=== PATIENT | male | born 1950 | race Caucasian/White ===

== ENCOUNTER → 2021-09-30 | Outpatient (CLI) | payer MEDICARE | END | disposition home or self-care (01) | LOC: LABPAT 14:59 | PROVIDERS: ATTEND Orthopaedic Surgery | DX: Z01.812 Encounter for preprocedural laboratory examination (principal); Z22.322 Carrier or suspected carrier of Methicillin resistant Staphylococcus aureus; M17.11 Unilateral primary osteoarthritis, right knee | CPT/HCPCS: 87070 ==

== ENCOUNTER 2021-10-20 08:16 | Day surgery (SDC) | payer MEDICARE ==
[2021-10-16 14:12] VITALS: BMI 25.0
--- NOTE | 2021-10-19 14:15 | HP ---
HISTORY AND PHYSICAL DATE OF SURGERY: 10/20/2021 Silverio Dye is a 71-year-old patient seen with symptomatic right knee osteoarthritis. We discussed options for treatment. He elected to proceed with right total knee arthroplasty. Consent was obtained. PAST MEDICAL HISTORY: Hypothyroidism, hypertension, hyperlipidemia. PAST SURGICAL HISTORY: Knee arthroscopy. DAILY MEDICATIONS: Levothyroxine, losartan, simvastatin, turmeric, aspirin. ALLERGIES: BACTRIM. SOCIAL HISTORY: He denies current tobacco use. PHYSICAL EVALUATION OF THE RIGHT KNEE: Range of motion is negative 2/3 to 85. Tenderness, medial joint line. Crepitus, medial and patellofemoral compartments with range of motion. Pain with patellofemoral compression. Ligaments stable. Hip rotation without pain. Distal neurovascular exam intact. Right knee radiographs revealed severe osteoarthritic changes. IMPRESSION: 1. Right knee osteoarthritis. 2. Hyperlipidemia. 3. Hypertension. PLAN: Right total knee arthroplasty. MMODL / IJN: [id number] /
[~2021-10-20 08:16] MED LIST: ACETAMINOPHEN TAB 500 MG TAB PO PRN; DEXAMETHASONE SOD PHOSPHATE 4 MG/ML 1 ML VIAL IV ONE; HYDROmorphone 0.5 MG/0.5 ML SYRINGE IVP PRN; LACTATED RINGERS 1,000 ML IV SCH; LIDOCAINE 1% (10MG/ML) FOR IV START INTRADERMA PRN; MELOXICAM 7.5 MG TAB PO PRN; MIDAZOLAM 2 MG/2 ML VIAL IV PRN; ONDANSETRON 4 MG/2 ML VIAL IVP ONE; TRANEXAMIC ACID 1,000 MG in SODIUM CHLORIDE 0.9% 100 ML IVPB PRN
[2021-10-20 08:45] VITALS: RESP 16
[2021-10-20] MEDS ORDERED: MIDAZOLAM 2 MG/2 ML VIAL IVP ONE ×2 (09:39→09:59)
[2021-10-20] MEDS ORDERED: NEOSTIGMINE 1 MG/ML 10 ML VIAL ONE (09:55)
[2021-10-20] MEDS ORDERED: DEXAMETHASONE SOD PHOSPHATE 4 MG/ML 1 ML VIAL ONE (09:55)
[2021-10-20] MEDS ORDERED: LIDOCAINE 1% INJ 10MG/ML (20 ML MDV) ONE (09:55)
[2021-10-20] MEDS ORDERED: GLYCOPYRROLATE 0.2 MG/ML 2 ML VIAL ONE (09:55)
[2021-10-20] MEDS ORDERED: MIDAZOLAM 2 MG/2 ML VIAL ONE (09:55)
[2021-10-20] MEDS ORDERED: ROCURONIUM 10 MG/ML (5 ML VIAL) IV ONE (09:55)
[2021-10-20] MEDS ORDERED: ePHEDrine 50 MG/ML 1 ML VIAL ONE (09:55)
[2021-10-20] MEDS ORDERED: PROPOFOL 10 MG/ML 20 ML VIAL IV ONE (09:55)
[2021-10-20] MEDS ORDERED: fentaNYL (PF) 50 MCG/ML 2 ML AMP ONE (09:55)
[2021-10-20] MEDS ORDERED: ROPIVACAINE 5 MG/ML 30 ML VIAL ONE (09:55)
[2021-10-20] MEDS ORDERED: SUCCINYLCHOLINE CHLORIDE 100 MG/5 ML SYR IV ONE (09:55)
[2021-10-20] MEDS ORDERED: TRANEXAMIC ACID 1,000 MG/10 ML VIAL ONE (09:55)
[2021-10-20] MEDS ORDERED: SODIUM CHLORIDE 0.9% 100 ML BAG ONE (09:55)
[2021-10-20] MEDS ORDERED: PHENYLEPHRINE-0.9% NACL SYG 1,000 MCG/10 ML SYRINGE ONE (09:55)
[2021-10-20] MEDS ORDERED: LACTATED RINGERS 1,000 ML IV ONE ×2 (10:34→11:36)
[2021-10-20] MEDS ORDERED: HYDROmorphone 0.2 MG/1 ML SYRINGE IVP PRN (11:36)
[2021-10-20] MEDS ORDERED: ONDANSETRON 4 MG/2 ML VIAL IVP PRN (11:36)
[2021-10-20] MEDS ORDERED: NALOXONE 0.4 MG/ML 1 ML VIAL IV PRN (11:36)
[2021-10-20] MEDS ORDERED: HYDROcodone/APAP 5-325MG 1 EACH TAB PO PRN ×2 (11:36)
[2021-10-20] MEDS ORDERED: HYDROmorphone 0.5 MG/0.5 ML SYRINGE IVP PRN ×2 (11:36)
--- NOTE | 2021-10-20 11:36 | P.OP ---
Date of Procedure: 10/20/21 Preoperative Diagnosis: Right knee osteoarthritis Postoperative Diagnosis: Right knee osteoarthritis Procedure(s) Performed: Right total knee arthroplasty Implants: 1. Depuy attune size 5 right cruciate retaining cemented femur 2. Depuy attune size 5 fixed bearing cemented tibial baseplate 3. Depuy attune size 5 fixed bearing cruciate retaining 10 mm polyethylene tibial insert 4. Depuy attune 41 mm all polyethylene cemented patella Anesthesia: GETA, regional (Adductor canal catheter, Ipack block) Surgeon: Raymond Walsh [employer]estock Sales Representative #1: Trevon Charles Estimated Blood Loss (ml): 45 Pathology: other (Bone) Condition: stable Disposition: PACU Indications for Procedure: 71-year-old patient seen with symptomatic right knee osteoarthritis. After treatment options were discussed, he elected to proceed with right total knee arthroplasty. Operative Findings: See description of procedure Description of Procedure: Patient was taken to the operative suite after having an adductor canal catheter placed by the department of anesthesia as well as an IPack block for postoperative pain management. Patient underwent a general anesthetic by the department of anesthesia. Patient was given preoperative IV intake antibiotics and TXA. A well-padded tourniquet was placed about the right lower extremity. The lower extremity was then prepped and draped in the normal sterile orthopedic fashion. The extremity was elevated, a tourniquet was insufflated to 300. A standard anterior incision was made sharply through skin. Dissection was taken down through the subcutaneous soft tissues down to the extensor mechanism. A medial arthrotomy was performed, patella was everted and knee was flexed. There was advanced osteoarthritis noted. I introduced my distal intramedullary femoral drill. I then introduced the distal femoral cutting jig. Louis HICKMAN secured the cutting jig with 2 pins. I held retractors in position while Louis HICKMAN performed the distal femoral resection through the guide area we now removed her distal femoral cutting guide. We now placed our 4-in-1 femoral cutting block and positioned and it was secured with 2 pins by Louis HICKMAN while I held the block in position. The distal femoral finishing was now completed. A proximal tibial cutting guide was positioned. I held the guide in the appropriate position with both hands well Louis HICKMAN inserted stabilizing pins into the guide. Proximal tibial cut was made. We now placed a trial femoral component into position, along with an appropriate size tibial tray and insert. We now took the knee through range of motion and had full extension good flexion and good overall soft tissue balance noted. The patella was everted and stabilized with 2 towel clips held by Louis HICKMAN while I performed a flush with patellar quad tendon utilizing a fresh sawblade. We templated the patella, appropriate drill holes were made. An appropriate trial patella was positioned, knee was taken through full range of motion with the patella tracking very nicely. The trial patella was removed. Drill holes were made through the femoral component. All trial components were removed after marking off the appropriate rotation of the tibia. Retractors were now positioned along the proximal tibia. An appropriate keel punch was made with the appropriate size tibial guide by myself on Louis HICKMAN assisted by holding retractors. At this point appropriate size implants were chosen and opened. The joint was irrigated copiously with pulse lavage mechanical irrigation. The posterior capsule was infiltrated with local analgesic. The wound was irrigated with pulse lavage mechanical irrigation. We mixed antibiotic methylmethacrylate. We placed the knee into flexion. We placed multiple retractors assisted by Louis HICKMAN to expose the proximal tibia. Once the methyl methacrylate was ready, the tibial component was cemented into place removing any excess methylmethacrylate form by both myself and Louis HICKMAN. The femoral component was cemented into place removing the removing any excess methylmethacrylate performed by both myself and Louis HICKMAN. We then inserted the appropriate size polyethylene tibial insert. We made sure that it was locked into position. We took the knee into full extension, and then back in a flexion making sure we had removed any excess methylmethacrylate. The patellar component was then cemented down and secured with clamp. Excess methylmethacrylate removed. We kept the knee in full extension, patellar clamp in position until methylmethacrylate had hardened. Once it had hardened the patellar clamp was removed. The knee was taken through full range of motion. The patella tracked nicely. There was good soft tissue balancing. The tourniquet was now released. Additional hemostasis was achieved via electrocautery. A second gram of TXA was given. The wound again was irrigated with pulse lavage mechanical irrigation. The superficial soft tissues were infiltrated local analgesic. The extensor mechanism was repaired with Ethibond. We checked the repair with range of motion and it was stable. The subcutaneous soft tissues were repaired with Vicryl in layers. The skin was approximated with pernio/Dermabond. Sterile dressings were applied followed by loose web roll and Kevin bandage. The patient was transferred to a bed, and taken to recovery in stable and satisfactory condition. Louis HICKMAN assisted with this complex procedure.
[2021-10-20] MEDS ORDERED: ROPIVACAINE 0.2%-NS ON-Q PUMP 2 MG/ML EACH MISCELLANE ONE (12:03)
[2021-10-20 12:11] VITALS: TEMP 97.3
--- NOTE | 2021-10-20 12:40 | XR ---
Limited right knee HISTORY: Postop right knee replacement 2 views of the right knee Patient is status post right knee arthroplasty. There is anatomic alignment. Lucency is present withi n the soft tissues. IMPRESSION: Orthopedic follow-up.
[2021-10-20] MEDS ORDERED: hydrALAZINE HCL 20 MG/ML 1 ML VIAL IVP ONE (12:52)
[2021-10-20] MEDS ORDERED: Acetaminophen-Codeine 300-30mg TAB ONE (13:48)
[2021-10-20] MEDS ORDERED: Acetaminophen-Codeine 300-30mg TAB PO ONE (13:48)
[2021-10-20 15:06] VITALS: BP 161/85; PULSE 79
--- NOTE | 2021-10-21 14:33 | P.ANPRN ---
Procedure Note - Anesthesia - Nerve Block Performed Right Adductor Canal Infusion Time Out Performed: Yes Date of Procedure: 10/20/21 Procedure Start Time: 09:38 Procedure Stop Time: 09:48 Location of Patient: PreOp Indication: Acute Post-Operative Pain, Requested by Surgeon Sedation Type: Sedate with meaningful contact maintained Preparation: Sterile Prep, Sterile Dressing Position: Supine Catheter: Indwelling Needle Types: Pajunk Needle Gauge: 21 Ultrasound used to visualize needle placement: Yes Ultrasound used to observe medication spread: Yes Blood Aspirated: No Pain Paresthesia on Injection Noted: No Resistance on Injection: Normal Image Stored and Saved: Yes Events: Uneventful and Well Tolerated (ropi .5% 20cc)
--- NOTE | 2021-10-21 14:35 | P.ANPRN ---
Procedure Note - Anesthesia - Nerve Block Performed Right iPack Single Time Out Performed: Yes Date of Procedure: 10/20/21 Procedure Start Time: :49 Procedure Stop Time: :52 Location of Patient: PreOp Indication: Acute Post-Operative Pain, Requested by Surgeon Sedation Type: Sedate with meaningful contact maintained Preparation: Sterile Prep Position: Supine Needle Types: Pajunk Needle Gauge: 21 Ultrasound used to visualize needle placement: Yes Ultrasound used to observe medication spread: Yes Blood Aspirated: No Pain Paresthesia on Injection Noted: No Resistance on Injection: Normal Image Stored and Saved: Yes Events: Uneventful and Well Tolerated (ropi .5% 25cc plus dexamethasone 4mg)
--- NOTE | 2021-10-21 14:37 | P.ANPRN ---
Procedure Note - Anesthesia - Nerve Block Performed Right Adductor Canal Infusion Time Out Performed: Yes Date of Procedure: 10/20/21 Procedure Start Time: 11:59 Procedure Stop Time: 12:09 Location of Patient: PreOp Indication: Acute Post-Operative Pain, Requested by Surgeon Sedation Type: Sedate with meaningful contact maintained Preparation: Sterile Prep, Sterile Dressing Position: Supine Catheter: Indwelling Needle Types: Pajunk Needle Gauge: 21 Ultrasound used to visualize needle placement: Yes Ultrasound used to observe medication spread: Yes Blood Aspirated: No Pain Paresthesia on Injection Noted: No Resistance on Injection: Normal Image Stored and Saved: Yes Events: Uneventful and Well Tolerated (ropi .5% 20cc)
--- NOTE | 2021-10-21 14:38 | P.ANPRN ---
Procedure Note - Anesthesia - Nerve Block Performed Right iPack Single Time Out Performed: Yes Date of Procedure: 10/20/21 Procedure Start Time: 12:10 Procedure Stop Time: 12:13 Location of Patient: PreOp Indication: Acute Post-Operative Pain, Requested by Surgeon Sedation Type: Sedate with meaningful contact maintained Preparation: Sterile Prep Position: Supine Needle Types: Pajunk Needle Gauge: 21 Ultrasound used to visualize needle placement: Yes Ultrasound used to observe medication spread: Yes Blood Aspirated: No Pain Paresthesia on Injection Noted: No Resistance on Injection: Normal Image Stored and Saved: Yes Events: Uneventful and Well Tolerated (ropi .5% 25cc plus dexamethasone 4 mg)
== END 2021-10-20 15:55 | disposition home health service (06) ==
LOC: OR 08:16
PROVIDERS: ATTEND Orthopaedic Surgery
DX: M17.11 Unilateral primary osteoarthritis, right knee (principal); I10 Essential (primary) hypertension; E07.9 Disorder of thyroid, unspecified; E78.5 Hyperlipidemia, unspecified; N40.0 Benign prostatic hyperplasia without lower urinary tract symptoms; Z86.73 Personal history of transient ischemic attack (TIA), and cerebral infarction without residual deficits; I49.9 Cardiac arrhythmia, unspecified
CPT/HCPCS: 27447; 97110; 97161; 64999; 64448; 76942; 88300; 73560; C1776; C1713 ×2; J2250; J0360; J1100; J2710; J0690; J2405; J2001; J3010; J2795 ×2; J2370; J0330; J2704; J1170

== ENCOUNTER 2023-05-06 11:22 | Day surgery (SDC) | payer MEDICARE, OTHER ==
[2023-05-04 15:40] VITALS: BMI 25.7
--- NOTE | 2023-05-06 07:21 | HP ---
HISTORY AND PHYSICAL DATE OF SURGERY: 05/06/2023. HISTORY OF PRESENT ILLNESS: Silverio Dye is a 73-year-old patient, seen with progressive left knee pain. We discussed options for treatment. He elected to proceed with left knee arthroscopy. Consent regarding procedure was obtained. PAST MEDICAL HISTORY: Hypertension, hyperlipidemia, and hypothyroidism. PAST SURGICAL HISTORY: Knee arthroscopy. DAILY MEDICATIONS: 1. Levothyroxine. 2. Losartan/hydrochlorothiazide. 3. Simvastatin. 4. Motrin. 5. Aspirin. ALLERGIES: Bactrim. SOCIAL HISTORY: Denies current tobacco use. PHYSICAL EVALUATION OF THE LEFT KNEE: Range of motion is 0 to 120 degrees. Mild effusion. Tenderness along the medial joint line. Tenderness along the lateral joint line. Positive medial Joaquim's. Positive lateral Joaquim's. Ligaments are stable. Hip rotation is without pain. Distal neurovascular exam is intact. IMAGING STUDIES: Left knee radiographs revealed evidence for previous metallic screws within the patella and mild osteoarthritis. IMPRESSION: 1. Internal derangement of left knee with meniscal tears. 2. Retained metallic hardware, left patella. 3. Hypertension. 4. Hyperlipidemia. 5. Hypothyroidism. PLAN: Left knee arthroscopy with partial meniscectomy and debridement. MMODL / IJN: [id number] /
[~2023-05-06 11:22] MED LIST changes: -ACETAMINOPHEN TAB 500 MG TAB PO PRN; -LIDOCAINE 1% (10MG/ML) FOR IV START INTRADERMA PRN; -MELOXICAM 7.5 MG TAB PO PRN; -MIDAZOLAM 2 MG/2 ML VIAL IV PRN; -TRANEXAMIC ACID 1,000 MG in SODIUM CHLORIDE 0.9% 100 ML IVPB PRN
[2023-05-06] MEDS ORDERED: LIDOCAINE 1% (10MG/ML) FOR IV START INTRADERMA ONE (12:30)
[2023-05-06] MEDS ORDERED: MIDAZOLAM 2 MG/2 ML VIAL ONE (13:33)
[2023-05-06] MEDS ORDERED: KETOROLAC 30 MG/ML 1 ML VIAL ONE (13:33)
[2023-05-06] MEDS ORDERED: PROPOFOL 10 MG/ML 20 ML VIAL IV ONE (13:33)
[2023-05-06] MEDS ORDERED: fentaNYL (PF) 50 MCG/ML 2 ML AMP ONE (13:33)
[2023-05-06] MEDS ORDERED: LIDOCAINE 2% INJ 20 MG/ML (2 ML VIAL) ONE (13:33)
[2023-05-06] MEDS ORDERED: BUPIVACAINE (PF) 0.25% 30 ML VIAL SQ ONE ×2 (13:34→14:08)
--- NOTE | 2023-05-06 14:25 | P.OP ---
Date of Procedure: 05/06/23 Preoperative Diagnosis: Internal derangement left knee Postoperative Diagnosis: 1. Tear medial meniscus left knee 2. Grade 4 chondromalacia medial femoral condyle left knee 3. Reactive synovitis medial, lateral and suprapatellar compartments left knee Procedure(s) Performed: 1. Arthroscopic partial medial meniscectomy left knee 2. Arthroscopic microfracture medial femoral condyle left knee 3. Arthroscopic partial synovectomy medial, lateral and suprapatellar compartments left knee Anesthesia: GETA, local Surgeon: Raymond Walsh Estimated Blood Loss (ml): 7 Pathology: none sent Condition: stable Disposition: PACU Indications for Procedure: 73-year-old patient seen with progressive left knee pain. After having treatment options discussed, he elected to proceed with arthroscopy. Operative Findings: see description of procedure Description of Procedure: Patient was taken to the operative suite. Patient underwent a general anesthetic by the department of anesthesia. Patient was given preoperative antibiotics. The left lower extremity was placed in a well-padded arthroscopic leg godinez. The left leg was prepped and draped in the normal sterile orthopedic fashion. A lateral parapatellar and suprapatellar incision was made. Trochars were inserted. Arthroscopy was initiated. Suprapatellar pouch revealed diffuse thick reactive synovitis. The patellofemoral joint appeared articulate congruently. There was grade 2/3 chondromalacia of the patella without osteochondral tears.. The scope was guided into the medial gutter. No loose bodies or plica were identified. The scope was then guided into the medial compartment. A medial parapatellar incision was made. Trocar inserted followed by probe. There was a tear involving the posterior horn and midbody of the medial meniscus. There were grade 3/4 chondromalacia changes the medial femoral condyle with one area of exposed bone along with grade 2/3 chondral malacia changes of the tibial plateau. There was thick reactive synovitis anteriorly. I performed a partial medial meniscectomy getting down to stable meniscal tissue. I performed a partial synovectomy decompressing reactive synovitis. I introduced a microfracture awl and I performed a microfracture to the area of exposed bone medial femoral condyle penetrating the bone with resultant bleeding at the microfracture site. The residual meniscus was stable. The residual osteochondral surface was stable. There was good decompression of the synovitis. Scope and probe were then guided into the intercondylar notch. Cruciates were identified, probed and found to be stable. The scope and probe were then guided into lateral compartment. Lateral meniscus was probed and found to be stable. There were some mild grade 1 chondromalacia changes lateral compartment without tears. There was some thick reactive some-itis anteriorly. I performed a partial synovectomy decompressing reactive synovitis within the lateral compartment. Shaver was now removed. There was good decompression of the synovitis. The scope was in guided back into the suprapatellar compartment. I introduced a motorized shaver into the suprapatellar compartment. I debrided some piecemeal fragments of meniscus. I performed a partial synovectomy. Shaver was now removed. There was good decompression of the synovitis. I took one more look around the entire knee, no residual debris. Instruments were now removed from the joint. The joint was infiltrated with .25% Marcaine. Steri- Strips were applied to the portal sites. Sterile dressings were applied. The patient was placed into a TAYLOR hose. No tourniquet was utilized. The patient was awakened, transferred to a bed and taken to recovery stable satisfactory condition.
[2023-05-06] MEDS ORDERED: hydrALAZINE HCL 20 MG/ML 1 ML VIAL IVP ONE (15:06)
[2023-05-06 16:05] VITALS: RESP 16; TEMP 96.8
[2023-05-06 16:09] VITALS: BP 168/78; PULSE 72
== END 2023-05-06 16:05 | disposition home or self-care (01) ==
LOC: OR 11:22
PROVIDERS: ATTEND Orthopaedic Surgery
DX: S83.242A Other tear of medial meniscus, current injury, left knee, initial encounter (principal); M94.262 Chondromalacia, left knee; M65.862 Other synovitis and tenosynovitis, left lower leg; M25.462 Effusion, left knee; I10 Essential (primary) hypertension; E78.5 Hyperlipidemia, unspecified; K21.9 Gastro-esophageal reflux disease without esophagitis; E03.9 Hypothyroidism, unspecified; Z79.82 Long term (current) use of aspirin; Z88.1 Allergy status to other antibiotic agents; Z79.899 Other long term (current) drug therapy; Z86.73 Personal history of transient ischemic attack (TIA), and cerebral infarction without residual deficits; X58.XXXA Exposure to other specified factors, initial encounter
CPT/HCPCS: 29881; 29879; J2250; J0360; J1100; J2405; J0690; J3010; J1885; J2704; J1170; J2001; J0665

== ENCOUNTER → 2023-07-12 | Outpatient (CLI) | payer MEDICARE, OTHER | END | disposition home or self-care (01) | LOC: LABPAT 11:01 | PROVIDERS: ATTEND Orthopaedic Surgery | DX: Z01.812 Encounter for preprocedural laboratory examination (principal); M17.12 Unilateral primary osteoarthritis, left knee; Z22.322 Carrier or suspected carrier of Methicillin resistant Staphylococcus aureus | CPT/HCPCS: 87070 ==

== ENCOUNTER → 2023-07-12 | Outpatient (CLI) | payer MEDICARE, OTHER ==
[2023-07-12 11:06] VITALS: BP 112/75; PULSE 75; RESP 16; TEMP 98.4
--- NOTE | 2023-07-12 12:31 | P.PAINPG ---
PQRS Measure Charge Sheet Comment: HISTORY OF PRESENT ILLNESS: A 73 yr old male as a referral from Dr Raymond Walsh presents today w severe and chronic LBP secondary to DDD, spondylosis and facet arthropathy without myelopathy for evaluation. Pt states pain level is provoked at 8 /10 in intensity, constant, localized in the lower lumbar spine, predominantly axial, sharp in character w occasional shooting pain towards the L hip and L knee. Pain is provoked by removal of therapeutic patch. Pain is alleviated by medications (Celebrex, ASA, Signal Relief Patch), topical, chiropractic treatments weekly x 8 mo which he is currently in, physician guided home exercises daily x [address] Walsh, heat, ice, repositioning and rest . Oswestry axial pain score at 24. PMH: OA, HTN, Hyperlipidemia, Hypothyroidism, BPH PSH: R Knee Arthroplasty (2021), L Knee Arthroscopy (2022), SH: Negative x3. Retired. FH: Non contributory All: See list Meds: See list REVIEW OF ORGAN SYSTEMS: CONSTITUTIONAL: No fevers or chills. No recent weight loss. NEUROLOGICAL: + numbness and tingling along the distal extremities. No seizure disorders or headaches. MUSCULOSKELETAL: + pain PSYCHIATRIC: Denies current depression or suicidal thoughts. Physical Examinations : Constitutional : Cooperative , not in acute distress . Neurologic : Cranial nerve II to XII intact. No focal neurological deficits. Psychiatric : alert & oriented x 3. Matching mood & appropriate affect. Judgment & insight intact. Musculoskeletal : Cervical Spine Motor strength in the deltoid and biceps: Normal right side. Normal Left side Motor strength biceps and the wrist extensors: Normal right side . Normal left side Motor strength in the triceps muscle: Normal right side. Normal left side Deep tendon reflexes: Normal at the biceps. Normal at Brachioradialis. Normal at triceps Vertebral body tenderness to deep palpation over Cervical facet loading test: positive bilaterally Spurling test: positive bilaterally Neck distraction test: positive bilaterally Yesenia sign: positive bilaterally Lumbar spine Motor strength lower extremities ,thigh and legs 5/5 Right side , 5/5 Left side Deep tendon reflexes : Normal Knee Jerk. Normal Ankle Jerk Vertebral body tenderness over L5 Tan Test positive Lumbar facet Loading Test: positive Right / positive Left Range of motion of the lumbar spine Flexion 30 degrees, extension 10 degrees Straight Leg Raise test: Left/ Right positive at <35 degrees Charley test: positive right / positive left. Severe tenderness over the Sacroiliac joint on the Right / Left sides Gaenslen test: positive bilaterally Seated flexion test: positive bilate rally. Sacral spine : Severe tenderness over the Sacroiliac joint: right side / left side Range of motion: Flexion of the lumbar spine <60 degrees Range of motion: Extension of the lumbar spine <20 degrees Gaenslen's Test positive Charley test: positive right side / left side Thigh Thrust Test Sacral Thrust Test Imaging: X-rays the lumbar spine from 06/07/23 reviewed Assessment/ Plan : Lumbar DDD Recommendation of MRI no contrast of the lumbar spine M51.36 Would possibly benefit from SOTERO L5-S1. Risks, benefits of procedure discussed and patient verbalized understanding. Admits to anti- coagulant use or medical history of diabetes. Protocol for discontinuation/ continuation of medications henry procedure discussed. Minimal anesthesia provided, if clinically indicated, consisting of Versed and Fentanyl. All questions answered. I have spent greater than 30 minutes on patient care today. Dr Martin was available by phone for the evaluation of this patient. The time was used to review the medical records including relevant urine studies and Prescription history (MAPs), review of the available imaging, evaluation and examination of the patient, coordination of care with the medical staff and if applicable referring physicians, as well as creation of the medical record Home Medications: Ambulatory Orders Finasteride [Proscar] 5 mg PO HS 10/16/21 Levothyroxine Sodium [Synthroid] 75 mcg PO DAILY 10/16/21 Losartan/Hydrochlorothiazide [Losartan-Hctz 100-25 mg Tab] 1 tab PO DAILY 10/16/21 Simvastatin [Zocor] 20 mg PO HS 10/16/21 Aspirin [Adult Low Dose Aspirin EC] 81 mg PO DAILY 05/04/23 Omeprazole 40 mg PO DAILY PRN 05/04/23 Controlled Substance Measures - Controlled Substance Measures Is patient prescribed a controlled substance at discharge?: No
== END ==
LOC: PNWHC3 09:55
PROVIDERS: ATTEND Specialist
DX: M51.16 Intervertebral disc disorders with radiculopathy, lumbar region (principal); M47.26 Other spondylosis with radiculopathy, lumbar region; S22.009A Unspecified fracture of unspecified thoracic vertebra, initial encounter for closed fracture; M19.90 Unspecified osteoarthritis, unspecified site; I10 Essential (primary) hypertension; E78.5 Hyperlipidemia, unspecified; E03.9 Hypothyroidism, unspecified; N40.0 Benign prostatic hyperplasia without lower urinary tract symptoms; Z79.82 Long term (current) use of aspirin; Z79.890 Hormone replacement therapy; Z79.899 Other long term (current) drug therapy; Z88.2 Allergy status to sulfonamides; Z88.1 Allergy status to other antibiotic agents; Z91.018 Allergy to other foods; X58.XXXA Exposure to other specified factors, initial encounter
CPT/HCPCS: 99211

== ENCOUNTER → 2023-07-30 | Outpatient (CLI) | payer MEDICARE, OTHER ==
--- NOTE | 2023-07-30 14:34 | CTL ---
EXAMINATION TYPE: CT Low Dose Lung DATE OF EXAM ORDERED: 07/30/2023 HISTORY: Lung cancer screening CT DLP: 95.[address] CTDI: 2.4 mGy Automated exposure control for dose reduction was used. SCREENING VISIT: 1 COMPARISON: None TECHNIQUE: Low dose computed tomography scan was performed through the chest at 1 mm thick sections a nd reconstructed images in multiple planes at 1 mm and [address] DIAGNOSTIC QUALITY: Satisfactory FINDINGS: There are 3 small 2 to 3 mm pulmonary nodules, 2 in the right lung and one in the left. No suspicious lung nodules are seen. There is mild emphysematous change. There is no abnormal airspace/consolidative density or abnormal interstitial density. There is no pleural effusion, pleural thickening or pneumothorax. The great vessels chest are normal is no mediastinal, hilar or axillary adenopathy. Limited scanning the upper abdomen reveals no gross abnormality. No focal osseous lesions are seen. IMPRESSION: 1. Lung RADS category 2 benign. Benign nodules as described above. Continue routine screening at year ly intervals. 2. Mild emphysematous changes. 3. No acute cardiopulmonary disease.
== END | disposition home or self-care (01) ==
LOC: RADCTMAIN 13:43
PROVIDERS: ATTEND Family Medicine
DX: Z12.2 Encounter for screening for malignant neoplasm of respiratory organs (principal); J43.9 Emphysema, unspecified; R91.8 Other nonspecific abnormal finding of lung field; Z87.891 Personal history of nicotine dependence
CPT/HCPCS: 71271

== ENCOUNTER → 2023-12-23 | Outpatient (CLI) | payer MEDICARE, OTHER ==
--- NOTE | 2023-12-23 11:34 | MR ---
EXAMINATION TYPE: MR lumbar spine wo con DATE OF EXAM: 12/23/2023 COMPARISON: None HISTORY: Low back pain, history of fall injury TECHNIQUE: T1 and T2 axial and sagittal images of the lumbar spine are submitted. FINDINGS: There is no abnormal signal seen within the visualized spinal cord or paraspinal soft tissu es. Mild thickening of the left adrenal gland likely in the basis of benign hyperplasia. There is a s coliotic curvature of the spine with severe degenerative disc disease at all levels. At T12-L1 there is a grade 1 retrolisthesis, facet arthropathy and circumferential disc bulging. Mild bilateral foraminal encroachment and borderline central stenosis. At L1-2 there is severe degenerative disc disease with grade 1 retrolisthesis and posterior spondylos is. Posterior disc osteophyte complex with circumferential disc bulging noted. There is severe right- sided foraminal encroachment and moderate left foraminal encroachment. At L2-3 there is severe degenerative disc disease with posterior spondylosis and retrolisthesis grade 1. Facet arthropathy and ligamentum flavum contribute to mild central stenosis, moderate left and mo derate to severe right foraminal encroachment. At L3-4 there is severe degenerative disc disease with discogenic marrow changes. Facet arthropathy a nd ligamentum flavum hypertrophy. Broad-based posterior disc protrusion contribute to moderate canal stenosis and bilateral foraminal encroachment. At L4-5 there is severe degenerative disc disease with discogenic marrow changes. Circumferential dis c bulging with ligamentum flavum hypertrophy and facet arthropathy. Moderate bilateral foraminal encr oachment and mild canal stenosis. At L5-S1 there is a grade 1\2 anterolisthesis with severe facet arthropathy. Cannot exclude a bilater al pars defect is suspected bilateral spondylolysis. Severe bilateral foraminal encroachment greater on the left and mild central stenosis. IMPRESSION: 1. Scoliosis with severe degenerative disc disease at all levels. 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 2. Multilevel disc bulging or protrusions with disc osteophyte complex and multilevel canal stenosis. 3. Multilevel significant foraminal encroachment as discussed above.
== END | disposition home or self-care (01) ==
LOC: RADMRIMAIN 10:14
PROVIDERS: ATTEND Specialist
DX: M51.36 Other intervertebral disc degeneration, lumbar region (principal); M43.17 Spondylolisthesis, lumbosacral region; M47.817 Spondylosis without myelopathy or radiculopathy, lumbosacral region; M25.78 Osteophyte, vertebrae; M48.061 Spinal stenosis, lumbar region without neurogenic claudication; M41.86 Other forms of scoliosis, lumbar region
CPT/HCPCS: 72148

== ENCOUNTER → 2023-12-30 | Outpatient (CLI) | payer MEDICARE, OTHER ==
[2023-12-30 12:54] VITALS: BP 184/86; PULSE 86; RESP 15; TEMP 97.5
--- NOTE | 2023-12-30 14:31 | P.PAINPG ---
PQRS Measure Charge Sheet Comment: HISTORY OF PRESENT ILLNESS: A 73 yr old male presents today w severe and chronic LBP secondary to DDD, spondylosis and facet arthropathy without myelopathy for evaluation of MRI results. Pt states pain level is provoked at 6 /10 in intensity, constant, predominantly axial, localized in the lower lumbar spine, sharp in character without shooting pain. Pain is provoked by removal of therapeutic patch. Pain is alleviated by medications , topical, chiropractic treatments weekly x [address] Jose Alfredo Pisano which he is currently in, physician guided home exercises daily x [address] Walsh, heat, ice, repositioning and rest . Oswestry axial pain score at 24. Interventional procedures include Medications include Aleve, Ibu, ASA, Signal Relief patch REVIEW OF ORGAN SYSTEMS: CONSTITUTIONAL: No fevers or chills. No recent weight loss. NEUROLOGICAL: + numbness and tingling along the distal extremities. No seizure disorders or headaches. MUSCULOSKELETAL: + pain PSYCHIATRIC: Denies current depression or suicidal thoughts. Physical Examinations : Constitutional : Cooperative , not in acute distress . Neurologic : Cranial nerve II to XII intact. No focal neurological deficits. Psychiatric : alert & oriented x 3. Matching mood & appropriate affect. Judgment & insight intact. Musculoskeletal : Cervical Spine Motor strength in the deltoid and biceps: Normal right side. Normal Left side Motor strength biceps and the wrist extensors: Normal right side . Normal left side Motor strength in the triceps muscle: Normal right side. Normal left side Deep tendon reflexes: Normal at the biceps. Normal at Brachioradialis. Normal at triceps Vertebral body tenderness to deep palpation over Cervical facet loading test: positive bilaterally Spurling test: positive bilaterally Neck distraction test: positive bilaterally Yesenia sign: positive bilaterally Lumbar spine Motor strength lower extremities ,thigh and legs 5/5 Right side , 5/5 Left side Deep tendon reflexes : Normal Knee Jerk. Normal Ankle Jerk Vertebral body tenderness Tan Test positive Lumbar facet Loading Test: positive Right / positive Left L4-L5, L5-S1 Range of motion of the lumbar spine Flexion 30 degrees, extension 10 degrees Straight Leg Raise test: Left/ Right positive at <35 degrees Charley test: positive right / positive left. Severe tenderness over the Sacroiliac joint on the Right / Left sides Gaenslen test: positive bilaterally Seated flexion test: positive bilaterally. Sacral spine : Severe tenderness over the Sacroiliac joint: right side / left side Range of motion: Flexion of the lumbar spine <60 degrees Range of motion: Extension of the lumbar spine <20 degrees Gaenslen's Test positive Charley test: positive right side / left side Thigh Thrust Test Sacral Thrust Test Imaging: X-rays the lumbar spine from 06/07/23 reviewed MRI non contrast of the lumbar spine from 12/23/23 reviewed Assessment/ Plan : Severe lumbar DDD Recommendation of BL MBB L4-L5, L5-S1 #1. May need a series of injections up until RFA, for optimal pain relief. Risks, benefits of procedure discussed and patient verbalized understanding. Admits to anti- coagulant use or medical history of diabetes. Protocol for discontinuation/ continuation of medications henry procedure discussed. Minimal anesthesia provided, if clinically indicated, consisting of Versed and Fentanyl. All questions answered. I have spent greater than 30 minutes on patient care today. Dr Martin was available by phone for the evaluation of this patient. The time was used to r eview the medical records including relevant urine studies and Prescription history (MAPs), review of the available imaging, evaluation and examination of the patient, coordination of care with the medical staff and if applicable referring physicians, as well as creation of the medical record PQRS Narrative: Hx Alcohol Use (MH) No Home Medications: Ambulatory Orders Finasteride [Proscar] 5 mg PO HS 10/16/21 Levothyroxine Sodium [Synthroid] 75 mcg PO DAILY 10/16/21 Losartan/Hydrochlorothiazide [Losartan-Hctz 100-25 mg Tab] 1 tab PO DAILY 10/16/21 Simvastatin [Zocor] 20 mg PO HS 10/16/21 Aspirin [Adult Low Dose Aspirin EC] 81 mg PO DAILY 05/04/23 Omeprazole 40 mg PO DAILY PRN 05/04/23 Controlled Substance Measures - Controlled Substance Measures Is patient prescribed a controlled substance at discharge?: No
== END ==
LOC: PNWHC3 09:55
PROVIDERS: ATTEND Specialist
DX: M51.37 Other intervertebral disc degeneration, lumbosacral region (principal); M47.817 Spondylosis without myelopathy or radiculopathy, lumbosacral region; G89.29 Other chronic pain; Z88.2 Allergy status to sulfonamides; Z91.018 Allergy to other foods; Z88.1 Allergy status to other antibiotic agents
CPT/HCPCS: 99211

== ENCOUNTER 2024-01-07 13:03 | Emergency (ER) | payer MEDICARE ==
[2024-01-07 13:24] VITALS: RESP 18
--- NOTE | 2024-01-07 13:48 | ED ---
General Adult HPI - General Chief complaint: Recheck/Abnormal Lab/Rx Stated complaint: Hypertension Time Seen by Provider: 01/07/24 13:25 Source: patient, RN notes reviewed, old records reviewed Mode of arrival: ambulatory Limitations: no limitations - History of Present Illness Initial comments: Patient is a 74-year-old male who was sent over from pain management here in the hospital for hypertension. Has a history of hypertension that is usually controlled. Based on our system, systolic blood pressure has typically been above 170 when at the hospital. Currently is in the 200s. He denies any acute complaints at this time. Has a remote history of a prior stroke with residual deficits of decreased left peripheral vision. Denies any acute complaints at this time. Denies any significant back pain, chest pain, abdominal pain, naus ea, vomiting. Denies headache or new blurry vision. Denies any weakness or numbness. Presents for elevated blood pressure. Appears to be asymptomatic. - Related Data Home Medications Medication Instructions Recorded Confirmed Finasteride [Proscar] 5 mg PO HS 10/16/21 01/07/24 Levothyroxine Sodium [Synthroid] 75 mcg PO DAILY 10/16/21 01/07/24 Losartan/Hydrochlorothiazide 1 tab PO DAILY 10/16/21 01/07/24 [Losartan-Hctz 100-25 mg Tab] Simvastatin [Zocor] 20 mg PO HS 10/16/21 01/07/24 Aspirin [Adult Low Dose Aspirin EC] 81 mg PO DAILY 05/04/23 01/07/24 Omeprazole 40 mg PO DAILY PRN 05/04/23 01/07/24 Celecoxib [CeleBREX] 200 mg PO BID 01/07/24 01/07/24 Cyclobenzaprine [Flexeril] 10 mg PO HS PRN 01/07/24 01/07/24 Allergies Allergy/AdvReac Type Severity Reaction Status Date / Time sulfamethoxazole Allergy Joint Verified 01/07/24 13:51 [From Bactrim] pain/Diarrhea tomato Allergy Nausea Verified 01/07/24 13:51 trimethoprim [From Bactrim] Allergy Joint Verified 01/07/24 13:51 pain/Diarrhea Review of Systems ROS Statement: Those systems with pertinent positive or pertinent negative responses have been documented in the HPI. Review of Systems: CONST: Denies fever EYES: Denies blurry vision ENT: Denies nasal congestion C/V: Denies Chest pain RESP: Denies shortness of breath GI: Denies abdominal pain : Denies dysuria SKIN: Denies rash. MSK: Denies joint pain. NEURO: Denies headache ROS Other: All systems not noted in ROS Statement are negative. Past Medical History Past Medical History: Hypertension History of Any Multi-Drug Resistant Organisms: None Reported Smoking Status: Former smoker Past Alcohol Use History: None Reported Past Drug Use History: None Reported General Exam - General Exam Comments Initial Comments: General: Appears in no acute distress. HEAD: Normal with no signs of head trauma. EYES: Pupils are equally reactive to light bilaterally. EOMI. Decreased vision in the left periphery which is chronic for the patient. Left pupil is slightly larger than 2 mm compared to right pupil which is 2 mm. Very very slight anisocoria. Unknown chronicity of this for the patient. No current acute symptoms from it. ENT: Hearing grossly intact, normal oropharynx. RESPIRATORY: Clear breath sounds bilaterally. No wheezes, rales, or rhonchi. C/V: Regular rate and rhythm. S1 and S2 auscultated, no edema, peripheral pulses 2+ and intact throughout ABD: Abd is soft, nontender, nondistended EXT: Normal range of motion, no obvious deformity. Injection site in the lower spine unremarkable. SKIN: No rashes or lesions observed on exposed skin. Injection site in the lower spine unremarkable. No evidence of infection. NEURO: Alert and oriented x 4. Cranial nerves II-XII intact. No focal sensory or strength deficits. NIH is 0 for new deficits. Chronic left peripheral vision loss from prior stroke. GCS of 15. Limitations: no limitations Course Vital Signs 01/07/24 01/07/24 01/07/24 13:04 13:20 14:22 Temperature 97.5 F L Pulse Rate 58 L 61 70 Respiratory 16 18 18 Rate Blood Pressure 218/100 233/117 205/113 O2 Sat by Pulse 100 100 97 Oximetry 01/07/24 01/07/24 01/07/24 14:40 15:16 15:51 Temperature 98 F Pulse Rate 70 76 Respiratory 18 18 Rate Blood Pressure 209/109 192/102 173/89 O2 Sat by Pulse 98 99 Oximetry Medical Decision Making - Medical Decision Making Was pt. sent in by a medical professional or institution (, PA, GOVERNMENT SALES MANAGER, urgent care, hospital, or group home...) When possible be specific @ -No Did you speak to anyone other than the patient for history (EMS, parent, family, police, friend...)? What history was obtained from this source @ -No Did you review nursing and triage notes (agree or disagree)? Why? @ -I reviewed and agree with nursing and triage notes Were old charts reviewed (outside hosp., previous admission, EMS record, old EKG, old radiological studies, urgent care reports/EKG's, group home records)? Report findings @ -No old charts were reviewed Differential Diagnosis (chest pain, altered mental status, abdominal pain women, abdominal pain men, vaginal bleeding, weakness, fever, dyspnea, syncope, headache, dizziness, GI bleed, back pain, seizure, CVA, palpatations, mental health, musculoskeletal)? @ -Asymptomatic hypertension, kidney dysfunction, intracranial process, pain. This list is not all inclusive. EKG interpreted by me (3pts min.). @ -As above X-rays interpreted by me (1pt min.). @ -None done CT interpreted by me (1pt min.). @ -The brain shows old stroke with no obvious acute process. U/S interpreted by me (1pt. min.). @ -None done What testing was considered but not performed or refused? (CT, X-rays, U/S, labs)? Why? @ -None What meds were considered but not given or refused? Why? @ -None Did you discuss the management of the patient with other professionals (professionals i.e. , PA, GOVERNMENT SALES MANAGER, lab, RT, psych nurse, director social welfare, physician assistant certified, teacher, traffic officer, case hardener)? Give summary @ -No Was smoking cessation discussed for >3mins.? @ -No Was critical care preformed (if so, how long)? @ -No Were there social determinants of health that impacted care today? How? (Homelessness, low income, unemployed, alcoholism, drug addiction, transportation, low edu. Level, literacy, decrease access to med. care, custodial, rehab)? @ -No Was there de-escalation of care discussed even if they declined (Discuss DNR or withdrawal of care, Hospice)? DNR status @ -No What co-morbidities impacted this encounter? (DM, HTN, Smoking, COPD, CAD, Canc er, CVA, ARF, Chemo, Hep., AIDS, mental health diagnosis, sleep apnea, morbid obesity)? @ -History of prior CVA with residual left-sided peripheral vision loss Was patient admitted / discharged? Hospital course, mention meds given and route, prescriptions, significant lab abnormalities, going to OR and other pertinent info. @ -Based on patient's presentation and physical exam, presents with what appears to be asymptomatic hypertension. Of note, patient also has very very slight anisocoria, with left pupil very slightly elevated compared to right pupil. Unknown if this is acute or chronic for the patient as he states he usually does not look at his pupils but is asymptomatic from it. We will obtain CT brain at this time for this. But as he is asymptomatic with NIH of 0 for any symptoms I do not believe he needs stroke criteria and he was in agreement. Vital signs currently within acceptable limits. No new visual complaints. Vital signs remarkable for elevated blood pressure, patient will be given a dose of hydralazine as well as IV fluids. EKG shows no signs of acute ischemia.CT shows old stroke with no obvious acute process. Labs are unremarkable. Patient required an additional dose of hydralazine but patient's blood pressure did improve to 173/89. I believe it is safer the patient be discharged home at this time. He was in agreement this plan. Remains asymptomatic. Recommend follow-up with PCP next week and monitoring blood pressure at home. I instructed the patient to follow up with their PCP in the next 1-3 days. I explained that the patient should return to the emergency department if they experience any worsening symptoms. Strict return precautions were discussed with the patient. The patient expressed understanding of these instructions. I answer ed all questions that the patient had. The patient was discharged home in good condition with their prescriptions and follow up information. Undiagnosed new problem with uncertain prognosis? @ -No Drug Therapy requiring intensive monitoring for toxicity (Heparin, Nitro, Insulin, Cardizem)? @ -No Were any procedures done? @ -No Diagnosis/symptom? @ -Asymptomatic hypertension Acute, or Chronic, or Acute on Chronic? @ -Acute Uncomplicated (without systemic symptoms) or Complicated (systemic symptoms)? @ -Uncomplicated Side effects of treatment? @ -None Exacerbation, Progression, or Severe Exacerbation] @ -No Poses a threat to life or bodily function? @ -Potentially if untreated. - Lab Data Result diagrams: 01/07/24 13:46 01/07/24 13:46 Lab Results 01/07/24 01/07/24 01/07/24 Range/Units 13:46 13:46 13:46 WBC 6.0 (3.8-10.6) k/uL RBC 4.82 (4.30-5.90) m/uL Hgb 13.1 (13.0-17.5) gm/dL Hct 40.8 (39.0-53.0) % MCV 84.6 (80.0-100.0) fL MCH 27.2 (25.0-35.0) pg MCHC 32.1 (31.0-37.0) g/dL RDW 14.0 (11.5-15.5) % Plt Count 415 (150-450) k/uL MPV 7.0 Neutrophils % 63 % Lymphocytes % 23 % Monocytes % 8 % Eosinophils % 3 % Basophils % 1 % Neutrophils # 3.8 (1.3-7.7) k/uL Lymphocytes # 1.4 (1.0-4.8) k/uL Monocytes # 0.5 (0-1.0) k/uL Eosinophils # 0.2 (0-0.7) k/uL Basophils # 0.1 (0-0.2) k/uL PT 11.0 (10.0-12.5) sec INR 1.0 (<1.2) APTT 23.4 (22.0-30.0) sec Sodium 131 L (137-145) mmol/L Potassium 4.8 (3.5-5.1) mmol/L Chloride 99 (98-107) mmol/L Carbon Dioxide 25 (22-30) mmol/L Anion Gap 7 mmol/L BUN 12 (9-20) mg/dL Creatinine 0.50 L (0.66-1.25) mg/dL Est GFR (CKD-EPI)AfAm >90 (>60 ml/min/1.73 sqM) Est GFR (CKD-EPI)NonAf >90 (>60 ml/min/1.73 sqM) Glucose 83 (74-99) mg/dL Calcium 9.2 (8.4-10.2) mg/dL Total Bilirubin 0.9 (0.2-1.3) mg/dL AST 47 (17-59) U/L ALT 35 (4-49) U/L Alkaline Phosphatase 89 (38-126) U/L Total Protein 7.6 (6.3-8.2) g/dL Albumin 4.4 (3.5-5.0) g/dL - EKG Data -: EKG Interpreted by Me EKG Comments: 12-lead Electrocardiogram Interpretation Note EKG was reviewed and interpreted by myself. 12-lead ECG performed at 1314 is interpreted by me as revealing sinus bradycardia at a rate of 59 beats per minute. [place] appears normal. VT interval is 154 ms, QRS durations 161 ms, QTc is 430 ms. Right bundle branch block morphology.. There were no ST or T wave abnormalities to suggest myocardial ischemia or injury. R wave progression across the precordium was satisfactory. By my interpretation this EKG is non-diagnostic for acute ischemia. Disposition Clinical Impression: Asymptomatic hypertension Disposition: HOME SELF-CARE Condition: Good Instructions (If sedation given, give patient instructions): Hypertension (ED) Is patient prescribed a controlled substance at d/c from ED?: No Referrals: Silverio Eubanks DO [Primary Care Provider] - 1-2 days Time of Disposition: 15:50
[2024-01-07 13:55] LABS: Basophils # (A) 0.1 k/uL (0-0.2); Basophils % (A) 1 %; Eosinophils # (A) 0.2 k/uL (0-0.7); Eosinophils % (A) 3 %; HCT 40.8 % (39.0-53.0); HGB 13.1 gm/dL (13.0-17.5); Lymphocytes # (A) 1.4 k/uL (1.0-4.8); Lymphocytes % (A) 23 %; MCH 27.2 pg (25.0-35.0); MCHC 32.1 g/dL (31.0-37.0); MCV 84.6 fL (80.0-100.0); Monocytes # (A) 0.5 k/uL (0-1.0); Monocytes % (A) 8 %; Neutrophils # (A) 3.8 k/uL (1.3-7.7); Neutrophils % (A) 63 %; Platelet Count 415 k/uL (150-450); RBC 4.82 m/uL (4.30-5.90)
[2024-01-07] MEDS: SODIUM CHLORIDE 0.9% 1,000 ML IV STA (14:05)
[2024-01-07] MEDS: hydrALAZINE HCL 20 MG/ML 1 ML VIAL IVP STA ×2 (14:05→14:42)
[2024-01-07 14:08] LABS: ALT 35 U/L (4-49); African American GFR (CKD) >90 (>60 ml/min/1.73 sqM); Albumin 4.4 g/dL (3.5-5.0); Anion Gap 7 mmol/L; Blood Urea Nitrogen 12 mg/dL (9-20); Calcium 9.2 mg/dL (8.4-10.2); Carbon Dioxide 25 mmol/L (22-30); Chloride 99 mmol/L (98-107); Glucose 83 mg/dL (74-99); Non-African American GFR(CKD) >90 (>60 ml/min/1.73 sqM); Sodium 131 mmol/L (137-145); Total Bilirubin 0.9 mg/dL (0.2-1.3); Total Protein 7.6 g/dL (6.3-8.2)
--- NOTE | 2024-01-07 14:11 | CT ---
EXAMINATION TYPE: CT brain wo con DATE OF EXAM: 01/07/2024 COMPARISON: None HISTORY: hypertension CT DLP: 1095.[address] of the brain was performed. The ventricles, basal cisterns and sulci overlying the cerebral convexities demonstrate mild enlargem ent. Larger remote insult right posterior parietal and occipital lobe. There is no evidence for intracranial hemorrhage or sulcal effacement. There is decreased attenuation about the periventricular white matter and deep white matter of both c erebral hemispheres, compatible with chronic small vessel ischemia. Differential diagnosis does inclu de demyelination. No mass effects are seen.No midline shift. Osseous calvarium is intact. If symptoms persist consider MRI. IMPRESSION: 1. Age related atrophic and chronic small vessel ischemic change without acute intracranial process s een at this time. Larger remote insult right posterior parietal and occipital lobe.
[2024-01-07 14:15] LABS: AST 47 U/L (17-59); Alkaline Phosphatase 89 U/L (38-126); Potassium 4.8 mmol/L (3.5-5.1)
[2024-01-07 14:22] LABS: Partial Thromboplastin Time 23.4 sec (22.0-30.0)
[2024-01-07 16:56] VITALS: BP 173/89; PULSE 76; TEMP 98
== END 2024-01-07 16:01 | disposition home or self-care (01) ==
LOC: EC 13:03
DX: I10 Essential (primary) hypertension (principal); I45.10 Unspecified right bundle-branch block; Z88.2 Allergy status to sulfonamides; Z88.1 Allergy status to other antibiotic agents; Z91.018 Allergy to other foods; Z87.891 Personal history of nicotine dependence
CPT/HCPCS: 36415; 93005; 80053; 85025; 85610; 85730; 70450; 99284; 96374; 96376; 96361; J0360

== ENCOUNTER → 2024-01-07 | Day surgery (SDC) | payer MEDICARE ==
[~2024-01-07] MED LIST changes: -DEXAMETHASONE SOD PHOSPHATE 4 MG/ML 1 ML VIAL IV ONE; -HYDROmorphone 0.5 MG/0.5 ML SYRINGE IVP PRN; -ONDANSETRON 4 MG/2 ML VIAL IVP ONE; +ROPIVACAINE 5MG/ML 20ML VIAL ONE
[2024-01-07 11:29] VITALS: RESP 16; TEMP 97
--- NOTE | 2024-01-07 11:39 | P.PCN ---
Date of Procedure: 01/07/24 Description of Procedure: Pre- and Post-operative Diagnosis: Lumbar facet arthropathy, and lumbar spondylosis without myelopathy. Procedure: #1 Diagnostic Medial Branch Block at bilateral Lumbar 4/5 and #1 diagnostic dorsal ramus block at Lumbar 5/ sacral ala levels (total 4 levels) Surgeon: Jorge Wylie Anesthesia: Local: 1% Lidocaine, IV sedation : None Complications: None EBL: None Specimen removed: None Fluoroscopic image: Saved to patient electronic medical records. Indications for Procedure: The patient is well known to pain clinic for his chronic low back pain management. The lumbar facet loading test was positive with a clinical diagnosis of lumbar facet arthropathy. Failed with conservative therapy. Came here for interventional help for better pain relief. Procedure and Findings: The patient was seen and examined. The written informed consent was obtained after explaining the risks, benefits and alternatives of the procedure to the patient. The patient was brought to the procedure room and was placed in the prone position on the operating table table. A pillow was placed under the abdomen to reduce lumbar lordosis. Standard anesthesia monitoring was done through out the procedure. The skin preparation was done with ChloraPrep, and draping was done in usual sterile fashion. Sterile technique was observed throughout the procedure. Under fluoroscopic guidance, right the Lumbar 4, 5 and Sacral ala levels were identified in the AP view. For lumbar L4, and L5 levels the targeting area of superior articular process, and close to the most medial and superior aspect of transverse process identified, marked. 1ml of 1% Lidocaine was used with a 25 gauge needle to achieve adequate local anesthesia of the skin and subcutaneous tissue at each level. A 25 gauge 3.5 inch spinal needle was placed and advanced targeting area which was close to the most medial and superior aspect of the transverse process. For Lumbar 5/ sacral ala level, fluoroscope was used in the anteroposterior view, and the needle tip was placed at the superior and most medial part of sacral ala close to the superior articular process. A bony contact was obtained and needle tip position was confirmed at anteroposterior view. No paresthesia was noted. A negative aspiration was confirmed. 1 ml solution per level was injected, the block solution containing 6 ml of 0.5% ropivacaine preservative-free solution. The needles were removed intact. Entire procedure repeated on the left side. Lumbar area was cleaned and bandages were applied. Preprocedure VAS: 5 out of 10 Postprocedure VAS: 1 out of 10 Disposition : The patient tolerated the procedure very well. The patient was transferred to the recovery room and remained stable until discharged home. The patient was given detailed discharge instructions for infection, bleeding, and increased pain at the injection site, and was advised to seek immediate medical attention should significant side effects develop. The patient will be scheduled with Pain Clinic within 2-4 weeks for repeat procedure if it's helpful.
--- NOTE | 2024-01-07 12:22 | FL ---
Fluoroscopy History: BACK PAIN Marty lumbar facet block 4 sec fl .[id number] DAP
[2024-01-07 12:25] VITALS: PULSE 60
[2024-01-07 13:24] VITALS: BP 203/110
== END ==
LOC: ORPAIN 10:47
DX: M47.816 Spondylosis without myelopathy or radiculopathy, lumbar region (principal); G89.29 Other chronic pain; I10 Essential (primary) hypertension; E78.00 Pure hypercholesterolemia, unspecified; E03.9 Hypothyroidism, unspecified; K21.9 Gastro-esophageal reflux disease without esophagitis; Z79.82 Long term (current) use of aspirin; Z88.2 Allergy status to sulfonamides; Z79.890 Hormone replacement therapy; Z96.651 Presence of right artificial knee joint; Z79.899 Other long term (current) drug therapy
CPT/HCPCS: 64494 ×2; 64493; J2795

== ENCOUNTER → 2024-01-27 | Outpatient (CLI) | payer MEDICARE ==
[2024-01-27 11:45] VITALS: RESP 16
[2024-01-27 11:51] VITALS: BP 148/88; PULSE 63
--- NOTE | 2024-01-27 14:37 | P.PAINPG ---
PQRS Measure Charge Sheet Comment: HISTORY OF PRESENT ILLNESS: A 74 yr old male presents today w severe and chronic LBP secondary to DDD, spondylosis and facet arthropathy without myelopathy for evaluation s/p BL MBB L3-L5 #1. Pt states he experienced 80% pain relief x 2 days s/p procedure. Pt states pain level is provoked at 6 /10 in intensity, constant, predominantly axial, localized in the lower lumbar spine, sharp in character without shooting pain. Pain is provoked by laying supine on L side and has to reposition at bedtime frequently due to sleep interruptions from pain. Pain is alleviated by medications , topical, chiropractic treatments weekly x last 4 mo which he is currently in, physician guided home exercises daily x [address] Walsh, repositioning and rest . Oswestry axial pain score at 24. Interventional procedures include BL MBB L3-L5 x1 Medications include Aleve, Ibu, ASA, Signal Relief patch REVIEW OF ORGAN SYSTEMS: CONSTITUTIONAL: No fevers or chills. No recent weight loss. NEUROLOGICAL: + numbness and tingling along the distal extremities. No seizure disorders or headaches. MUSCULOSKELETAL: + pain PSYCHIATRIC: Denies current depression or suicidal thoughts. Physical Examinations : Constitutional : Cooperative , not in acute distress . Neurologic : Cranial nerve II to XII intact. No focal neurological deficits. Psychiatric : alert & oriented x 3. Matching mood & appropriate affect. Judgment & insight intact. Musculoskeletal : Cervical Spine Motor strength in the deltoid and biceps: Normal right side. Normal Left side Motor strength biceps and the wrist extensors: Normal right side . Normal left side Motor strength in the triceps muscle: Normal right side. Normal left side Deep tendon reflexes: Normal at the biceps. Normal at Brachioradialis. Normal at triceps Vertebral body tenderness to deep palpation over Cervical facet loading test: positive bilaterally Spurling test: positive bilaterally Neck distraction test: positive bilaterally Yesenia sign: positive bilaterally Lumbar spine Motor strength lower extremities ,thigh and legs 5/5 Right side , 5/5 Left side Deep tendon reflexes : Normal Knee Jerk. Normal Ankle Jerk Vertebral body tenderness Tan Test positive Lumbar facet Loading Test: positive Right / positive Left L4-L5, L5-S1 Range of motion of the lumbar spine Flexion 30 degrees, extension 10 degrees Straight Leg Raise test: Left/ Right positive at <35 degrees Charley test: positive right / positive left. Severe tenderness over the Sacroiliac joint on the Right / Left sides Gaenslen test: positive bilaterally Seated flexion test: positive bilaterally. Sacral spine : Severe tenderness over the Sacroiliac joint: right side / left side Range of motion: Flexion of the lumbar spine <60 degrees Range of motion: Extension of the lumbar spine <20 degrees Gaenslen's Test positive Charley test: positive right side / left side Thigh Thrust Test Sacral Thrust Test Imaging: X-rays the lumbar spine from 06/07/23 reviewed MRI non contrast of the lumbar spine from 12/23/23 reviewed Assessment/ Plan : Severe lumbar DDD Recommendation of BL MBB L4-L5, L5-S1 #2. May need a series of injections up until RFA, for optimal pain relief. Risks, benefits of procedure discussed and patient verbalized understanding. Admits to anti- coagulant use or medical history of diabetes. Protocol for discontinuation/ continuation of medications henry procedure discussed. Minimal anesthesia provided, if clinically indicated, consisting of Versed and Fentanyl. All questions answered. I have spent greater than 30 minutes on patient care today. Dr Martin was available by phone for the evaluation of this patient. The time was used to review the medical records including relevant urine studies and Prescription history (MAPs), review of the available imaging, evaluation and examination of the patient, coordination of care with the medical staff and if applicable referring physicians, as well as creation of the medical record PQRS Narrative: Hx Alcohol Use (MH) No Home Medications: Ambulatory Orders Finasteride [Proscar] 5 mg PO HS 10/16/21 Levothyroxine Sodium [Synthroid] 75 mcg PO DAILY 10/16/21 Losartan/Hydrochlorothiazide [Losartan-Hctz 100-25 mg Tab] 1 tab PO DAILY 10/16/21 Simvastatin [Zocor] 20 mg PO HS 10/16/21 Aspirin [Adult Low Dose Aspirin EC] 81 mg PO DAILY 05/04/23 Omeprazole 40 mg PO DAILY PRN 05/04/23 Celecoxib [CeleBREX] 200 mg PO BID 01/07/24 Cyclobenzaprine [Flexeril] 10 mg PO HS PRN 01/07/24 Controlled Substance Measures - Controlled Substance Measures Is patient prescribed a controlled substance at discharge?: No
== END ==
LOC: PNWHC3 11:03
PROVIDERS: ATTEND Specialist
DX: M51.37 Other intervertebral disc degeneration, lumbosacral region (principal); Z88.2 Allergy status to sulfonamides; Z91.018 Allergy to other foods; Z88.1 Allergy status to other antibiotic agents
CPT/HCPCS: 99211

== ENCOUNTER → 2024-02-11 | Day surgery (SDC) | payer MEDICARE ==
[~2024-02-11] MED LIST changes: -ROPIVACAINE 5MG/ML 20ML VIAL ONE
[2024-02-11 07:53] VITALS: BP 172/87; PULSE 67; RESP 16; TEMP 97.3
--- NOTE | 2024-02-11 09:06 | P.PN ---
Progress Note - Text Progress Note Date: 02/11/24 This is 74 years old male who came for repeat facet injection at L4-5 L5-S1, doing the interview in the preop holding area, patient reported that he has 0/10 pain level, and his pain being low since the last injection, we diagnostic medial branch block lumbar area at L4-5 L5-S1 in January 06 and since that time patient reported that his pain improved significantly, currently he is signal relief patches on his back and I explained to the patient that evaluate the efficacy of the procedure , we have to evaluate the result of the injection, and because the patient had pain level of 0 we cannot evaluate if the injection helped or not, for this reason the procedure was canceled for today, patient will follow-up in the pain clinic in few weeks .
== END ==
LOC: ORPAIN 07:16
PROVIDERS: ATTEND Specialist
DX: Z53.8 Procedure and treatment not carried out for other reasons (principal); M47.816 Spondylosis without myelopathy or radiculopathy, lumbar region

== ENCOUNTER → 2024-09-01 | Outpatient (CLI) | payer MEDICARE | END | disposition home or self-care (01) | LOC: LABPAT 09:47 | PROVIDERS: ATTEND Orthopaedic Surgery | DX: Z01.812 Encounter for preprocedural laboratory examination (principal); M17.12 Unilateral primary osteoarthritis, left knee; Z22.322 Carrier or suspected carrier of Methicillin resistant Staphylococcus aureus | CPT/HCPCS: 87070 ==

== ENCOUNTER → 2024-09-19 | Outpatient (CLI) | payer MEDICARE ==
--- NOTE | 2024-09-19 12:23 | CTL ---
EXAMINATION TYPE: CT Low Dose Lung DATE OF EXAM: 09/19/2024 11:38 AM COMPARISON: 07/30/2023 CLINICAL INDICATION: Male, 74 years old with history of Z87.891 HX NICOTINE DEPENDENCE, former smoker , quit 11 years ago. Smoked 2 PPD x49 years., History of tobacco use. TECHNIQUE: Low dose computed tomography scan was performed through the chest at 1 mm thick sections a nd reconstructed images in multiple planes at 1 mm and [address] DLP: 119.3 mGycm, CT CTDI: 3.3 mGy, Automated exposure control for dose reduction was used. CT DIAGNOSTIC QUALITY: Satisfactory FINDINGS: The heart is upper limits of normal in size without pericardial effusion. LAD and lesser degree of RC A coronary artery calcifications are present. Mildly ectatic ascending aorta 3.6 cm. Mild atherosclerotic arch calcifications. Bovine configuration to the aortic arch. Borderline to mildly enlarged caliber main right and left pulmonary arteries measuring up to 2.6 cm m ay reflect underlying pulmonary arterial hypertension. Scattered nonenlarged mediastinal lymph nodes are present. No thoracic lymphadenopathy by CT size cri teria. Some hazy atelectasis at the posterior lung bases. [id number] diffuse bronchial wall thickening . Mild emphysematous change. No consolidation or pleural effusion. Additional strandy scarring or at electasis inferior lingula. A view calcified granulomas at the mid to lower lungs are unchanged. A few 4 mm pulmonary nodules remain unchanged. No new suspicious pulmonary nodule is seen. Visualized upper abdomen shows no gross abnormality. Bones: Moderate degenerative disc disease visualized upper lumbar spine. IMPRESSION: 1. Lung metastases 2, benign. Evidence of prior granulomatous disease and a few stable 4 mm pulmonary nodules. 2. COPD with mild emphysema. Hazy densities at the lung bases probably atelectasis. Possible underlyi ng pulmonary arterial hypertension. Recommend smoking cessation. CT LUNG RAD AND CT CHEST RECOMMENDATION: Lung-Rad 2 Benign Appearance or Behavior: Continue annual sc reening with LDCT in 12 months. S Modifier (other clinically significant findings): None [facility], , 09/19/2024 12:20 PM
== END | disposition home or self-care (01) ==
LOC: RADCTMAIN 10:35
PROVIDERS: ATTEND Family Medicine
DX: Z12.2 Encounter for screening for malignant neoplasm of respiratory organs (principal); C78.00 Secondary malignant neoplasm of unspecified lung; J43.9 Emphysema, unspecified; J44.9 Chronic obstructive pulmonary disease, unspecified; Z87.891 Personal history of nicotine dependence
CPT/HCPCS: 71271

== ENCOUNTER → 2024-09-19 | Outpatient (CLI) | payer MEDICARE ==
[2024-09-19 15:18] LABS: Basophils # (A) 0.04 X 10*3/uL (0.00-0.10); Basophils % (A) 0.7 %; Eosinophils # (A) 0.15 X 10*3/uL (0.04-0.35); Eosinophils % (A) 2.5 %; HCT 44.2 % (39.6-50.0); Lymphocytes # (A) 1.55 X 10*3/uL (0.90-5.00); MCH 26.7 pg (27.0-32.0); MCHC 31.7 g/dL (32.0-37.0); MCV 84.4 FL (80.0-97.0); Monocytes # (A) 0.69 X 10*3/uL (0.20-1.00); Monocytes % (A) 11.6 %; NRBC Per 100 WBC 0 X 10*3/uL (0.00-0.01); Neutrophils # (A) 3.53 X 10*3/uL (1.80-7.70); Platelet Count 362 X 10*3/uL (140-440); RBC 5.24 X 10*6/uL (4.40-5.60); RDW 15.4 % (11.5-14.5); WBC 5.97 X 10*3/uL (4.50-10.00)
[2024-09-19 16:41] LABS: INR 1.02 sec (0.93-1.11); Prothrombin Time 11.4 sec (9.9-11.9)
[2024-09-19 17:07] LABS: BUN/Creat Ratio 18.22 Ratio (12.00-20.00); Blood Urea Nitrogen 16.4 mg/dL (9.0-27.0); Calcium 9.9 mg/dL (8.7-10.3); Carbon Dioxide 27.1 mmol/L (21.6-31.8); Chloride 99 mmol/L (96-109); Glucose 93 mg/dL (70-110); Potassium 4.4 mmol/L (3.5-5.5); Sodium 136 mmol/L (135-145)
== END | disposition home or self-care (01) ==
LOC: LABWHC1 09:50
PROVIDERS: ATTEND Orthopaedic Surgery
DX: Z01.818 Encounter for other preprocedural examination (principal); M17.12 Unilateral primary osteoarthritis, left knee; I45.4 Nonspecific intraventricular block; R94.31 Abnormal electrocardiogram [ECG] [EKG]
CPT/HCPCS: 36415; 80048; 85025; 85610; 93005